=== PATIENT | female | born 1950 | race Caucasian/White ===

== ENCOUNTER 2020-06-12 11:46 | Emergency (ER) | payer MEDICARE, BC ==
[~2020-06-12] VITALS: Ht 154.9 cm; Wt 56.4 kg
[2020-06-12 11:54] VITALS: BP 137/77; TEMP 97.8
[2020-06-12 13:17] VITALS: PULSE 68
== END 2020-06-12 13:21 | disposition home or self-care (01) ==
LOC: COL.ER 11:46
DX: S83.92XA Sprain of unspecified site of left knee, initial encounter (principal); V48.4XXA Person boarding or alighting a car injured in noncollision transport accident, initial encounter

== ENCOUNTER → 2020-06-16 | Outpatient (CLI) | payer MEDICARE, BC, OTHER ==
[2020-06-16 09:51] LABS: HEMOGLOBIN 13.8 g/dl (12.5-16.0); MEAN CELL VOLUME 90 fl (80.0-100.0); MEAN CORPUSCULAR HEMOGLOBIN 30 pg (27.0-31.0); MEAN CORPUSCULAR HGB CONC 33 g/dl (33.0-37.0); PLATELET COUNT 241 K/mm3 (130-400); RED BLOOD COUNT 4.66 M/mm3 (4.10-5.30); REDCELL DISTRIBUTION WIDTH-CV 11.3 % (11.5-14.5)
[2020-06-16 10:20] LABS: ALBUMIN 4.4 gm/dL (3.5-5.0); BILIRUBIN,TOTAL 0.7 mg/dL (0.0-1.0); CALCIUM 9.2 mg/dL (8.4-10.2); CREATININE, serum 0.81 (0.52-1.25); POTASSIUM 4.2 mmol/L (3.4-5.0)
[2020-06-16 10:50] LABS: CHOLESTEROL RISK RATIO 3.5
== END ==
LOC: COL.LAB
DX: Z00.00 Encounter for general adult medical examination without abnormal findings (principal); E55.9 Vitamin D deficiency, unspecified; M81.0 Age-related osteoporosis without current pathological fracture